=== PATIENT | female | born 1945 | race Caucasian/White ===

== ENCOUNTER 2024-09-23 12:48 | Outpatient (CLI) | payer MEDICARE, SELFPAY ==
[2024-09-23] MEDS: ALBUTEROL 0.083% 2.5 MG/3 ML NEB IH (13:45)
--- NOTE | 2024-09-23 13:45 | PC.NURSE ---
PFT and 6 Minute Walk Test completed without incident. Albuterol 0.083% given via HHN, per written protocol, Pt tolerated tx well.
== END 2024-09-23 23:59 | disposition home or self-care (01) ==
PROVIDERS: PCP Family Medicine; Visit Provider Internal Medicine Pulmonary Disease
DX: R06.09 Other forms of dyspnea (principal)
CPT/HCPCS: 94060; 94618; 94726; 94729; J7613